=== PATIENT | male | born 1995 | race Caucasian/White ===

== ENCOUNTER → 2019-01-01 | Outpatient (CLI) | payer OTHER ==
[~2019-01-01] MED LIST: CLON1TAB10 PO; LEVO150T10 PO; LEVOFLOXACIN 250MG 50 ML IV ONE; LEVOFLOXACIN 500MG 100 ML IV ONE
[2019-01-01 15:55] VITALS: BP 148/88
--- NOTE | 2019-01-01 15:55 | NUR ---
IV insertion IV access obtained, via clean sterile technique by inserting 22 gauge catheter at after 1 attempt(s). IV secured properly. No trauma to site. Patient tolerated procedure well.
--- NOTE | 2019-01-01 15:55 | NUR ---
Discharge Instructions See e-MAR for any mediations given with this visit. Patient education given on disease process. Patient verbalized understanding. Previous labs reviewed. Patient discharged in stable condition with after care instructions and follow up appointment. MEDICATIONS LEVAQUIN IV
[2019-01-01 17:06] VITALS: BP 134/82
== END | disposition home or self-care (01) ==
LOC: CHF HDHVI 15:51
PROVIDERS: ATTEND Internal Medicine Cardiovascular Disease
DX: L02.91 Cutaneous abscess, unspecified (principal)
CPT/HCPCS: 96365; G0463; J1956

== ENCOUNTER → 2019-03-03 | Outpatient (CLI) | payer OTHER ==
[~2019-03-03] MED LIST changes: -LEVOFLOXACIN 250MG 50 ML IV ONE; -LEVOFLOXACIN 500MG 100 ML IV ONE
== END | disposition home or self-care (01) ==
LOC: Rad HDHVI 12:32
PROVIDERS: ATTEND Internal Medicine
DX: R06.02 Shortness of breath (principal)
CPT/HCPCS: 71046

== ENCOUNTER → 2021-09-14 | Outpatient (CLI) | payer OTHER ==
[~2021-09-14] MED LIST changes: +CLON-853 PO; -CLON1TAB10 PO
== END | disposition home or self-care (01) ==
LOC: LAB 13:40
PROVIDERS: ATTEND Internal Medicine
DX: K92.9 Disease of digestive system, unspecified (principal)
CPT/HCPCS: 85048; 87045; 87177; 87427

== ENCOUNTER → 2021-09-27 | Outpatient (CLI) | payer OTHER ==
[2021-09-27 09:53] LABS: Basophils # (auto) 0.1 10 ^3/uL (0-0.2); Basophils % (auto) 1.3 % (0.0-2.0); Calcium 9.3 mg/dL (8.5-10.1); Eosinophils # (auto) 0.5 10 ^3/uL (0-0.8); Eosinophils % (auto) 8.4 % (0.0-7.0); Hemoglobin 15.2 g/dL (13.5-17.5); Lymphocytes # (auto) 1.9 10 ^3/uL (0.4-5.4); Lymphocytes % (auto) 30.6 % (10.0-50.0); Mean Corpuscular Hemoglobin 27.1 pg (28.0-32.0); Mean Corpuscular Hgb Conc. 32.4 g/dL (32.0-36.0); Mean Corpuscular Volume 83.7 fL (80.0-100.0); Monocytes # (auto) 0.4 10 ^3/uL (0-1.3); Monocytes % (auto) 7.2 % (0.0-12.0); Neutrophils # (auto) 3.2 10 ^3/uL (1.6-8.6); Neutrophils % (auto) 52.5 % (37.0-80.0); Potassium 4.2 mmol/L (3.5-5.1); Red Blood Cells 5.62 10^6/uL (4.5-5.90); Red Cell Distribution Width 13.4 % (11.8-14.3)
[2021-09-27 09:58] LABS: Urine Blood Negative /uL (Negative)
[2021-09-27 09:59] LABS: BUN/Creatinine Ratio 12.1; Bilirubin, Total 0.3 mg/dL (0.2-1.0)
[2021-09-27 10:14] LABS: Free T4 (Free Thyroxine) 1.24 ng/dL (0.89-1.76); Prostate Specific Antigen 0.59 ng/mL (0.0-4.0)
== END | disposition home or self-care (01) ==
LOC: LAB 08:25
PROVIDERS: ATTEND Internal Medicine
DX: D51.3 Other dietary vitamin B12 deficiency anemia (principal); D64.9 Anemia, unspecified; E55.9 Vitamin D deficiency, unspecified; E11.9 Type 2 diabetes mellitus without complications; I10 Essential (primary) hypertension; R00.2 Palpitations; R53.1 Weakness; R30.0 Dysuria; C61 Malignant neoplasm of prostate
CPT/HCPCS: 36415; 80053; 80061; 81003; 82306; 82607; 83036; 84153; 84403; 84439; 84443; 85025

== ENCOUNTER 2024-07-14 05:33 | Inpatient (IN) | payer BC, OTHER ==
[~2024-07-14] VITALS: Ht 185.4 cm; Wt 88.0 kg
--- NOTE | 2024-07-14 07:16 | ED.PDOC ---
History of Present Illness HPI Comments 49 year old male presents to the ED with a chief complaint of perineal abscess onset 5 days. Patient began experiencing swelling perineal region 5 days ago as well as pain. Patient noticed pain worsen yesterday, noticed abscess in the region. Patient spoke with a telehealth doctor as was told to come to ED. In the past 7 years, patient experienced 3 similar episodes. Patient is not able to sit or lay on his back due to pain. PMHx asthma. Denies chest pain, shortness of breath, nausea, vomiting, diarrhea, headache, dizziness, fevers, chills. No other symptoms or modifying factors present at this time. Chief Complaint: Abscess Time Seen by MD: 06:45 Primary Care Provider: UNKNOWN Reviewed Notes: Medications, Allergies Allergies: Coded Allergies: Sulfa Antibiotics (Verified Allergy, Severe, 07/14/24) Home Meds Reported Medications Clonazepam (Clonazepam) 1 Mg Tab, 1 TAB PO QPM PRN for ANXIETY, #30 TAB 09/26/13 Levothyroxine Sodium (Levothyroxine Sodium) 150 Mcg Tab, 150 MCG PO DAILY PRN for thyroid 09/26/13 Information Source: Patient Mode of Arrival: Ambulatory Severity: Moderate Timing: Days Duration: Since onset Prehospital treatment: None Past Medical History PAST MEDICAL HISTORY: Denies Surgical History: Denies all surgeries Family History Family History: Unknown Social History Smoker: Non-Smoker Alcohol: Heavy Drugs: Denies Drug Use Lives In: Home Constitutional: denies: chills, diaphoresis, fatigue, fever, malaise, sweats, weakness, others EENTM: denies: blurred vision, double vision, ear bleeding, ear discharge, ear drainage, ear pain, ear ringing, eye pain, eye redness, hearing loss, mouth pain, mouth swelling, nasal discharge, nose bleeding, nose congestion, nose stevie n, photophobia, tearing, throat pain, throat swelling, voice changes, others Respiratory: denies: cough, hemoptysis, orthopnea, SOB at rest, shortness of breath, SOB with excertion, stridor, wheezing, others Cardiovascular: denies: chest pain, dizzy spells, diaphoresis, Dyspnea on exertion, edema, irregular heart beat, left arm pain, lightheadedness, palpitations, PND, syncope, others Gastrointestinal: denies: abdomen distended, abdominal pain, blood streaked bowels, constipated, diarrhea, dysphagia, difficulty swallowing, hematemesis, melena, nausea, poor appetite, poor fluid intake, rectal bleeding, rectal pain, vomiting, others Genitourinary: reports: others (perineal abscess); denies: burning, dysuria, flank pain, frequency, hematuria, incontinence, penile discharge, penile sore, pain, testicle pain, testicle swelling, urgency Neurological: denies: dizziness, fainting, headache, left sided numbness, left sided weakness, numbness, paresthesia, pre-existing deficit, right sided numbness, right sided weakness, seizure, speech problems, tingling, tremors, weakness, others Musculoskeletal: denies: back pain, gout, joint pain, joint swelling, muscle pain, muscle stiffness, neck pain, others Integumetry: denies: bruises, change in color, change in hair/nails, dryness, laceration, lesions, lumps, rash, wounds, others Allergic/Immunocompromised: denies: Difficulty Healing, Frequent Infections, Hives, Itching, others Hematologic/Lymphatic: denies: anemia, blood clots, easy bleeding, easy bruising, swollen glands, others Endocrine: denies: excessive hunger, excessive sweating, excessive thirst, excessive urination, flushing, intolerance to cold, intolerance to heat, unexplained weight gain, unexplained weight loss, others Psychiatric: denies: anxiety, bipolar disorder, depression, hopeless, panic disorder, schizophrenia, sleepless, suicidal, others All Other Systems: Reviewed and Negative Physical Exam General Appearance: Moderate Distress, Normal HEENT: Normal ENT Inspection, Pharynx Normal, TMs Normal Neck: Full Range of Motion, Non-Tender, Normal, Normal Inspection Respiratory: Chest Non-Tender, Lungs Clear, No Accessory Muscle Use, No Respi ratory Distress, Normal Breath Sounds Cardiovascular: No Edema, No JVD, No Murmur, No Gallop, Normal Peripheral Pulses, Regular Rate/Rhythm Breast Exam: Deferred Gastrointestinal: No Organomegaly, Non Tender, No Pulsatile Mass, Normal Bowel Sounds, Soft Genitalia: Deferred Pelvic: Deferred Rectal: Deferred Extremities: No calf tenderness, Normal capillary refill, Normal inspection, Normal range of motion, Non-tender, No pedal edema Musculoskeletal : Apperance: Normal Neurologic: Alert, guest attendant II-XII nml as Tested, No Motor Deficits, Normal Affect, Normal Mood, No Sensory Deficits Cerebellar Function: Normal Reflexes: Normal Skin: Dry, Normal Color, Warm Peripheral Pulses: 3+ Radial (R), 3+ Radial (L) Lymphatic: No Adenopathy Was a procedure done? Was a procedure done?: No Differential Dx Considerations may include: Abscess Fistula X-Ray, Labs, Meds, VS Vital Signs Date Time Temp Pulse Resp B/P (MAP) Pulse Ox O2 Delivery O2 Flow Rate FiO2 07/14/24 08:10 98.0 72 13 129/69 (89) 97 98.0 07/14/24 07:25 98.3 80 17 129/41 (70) 98 98.3 07/14/24 07:25 80 17 98 Room Air* 0 21 07/14/24 07:24 80 17 129/41 07/14/24 05:53 97.3 87 16 142/93 (109) 98 97.3 Lab Test 07/14/24 09:03 07/14/24 06:58 Range/Units Urine Color Pending Urine Clarity Pending Urine pH Pending Urine Specific [place] Pending Urine Protein Pending Urine Ketones Pending Urine Blood Pending Urine Nitrite Pending Urine Bilirubin Pending Urine Urobilinogen Pending Urine Leukocyte Esterase Pending Urine RBC Pending Urine Microscopic WBC Pending Urine Squamous Epithelial Cells Pending Urine Bacteria Pending Urine Glucose Pending White Blood Count 11.0 H 4.4-10.8 10^3/uL Red Blood Count 5.17 4.5-5.90 10^6/uL Hemoglobin 14.7 13.5-17.5 g/dL Hematocrit 43.5 41.0-53.0 % Mean Corpuscular Volume 84.2 80.0-100.0 fL Mean Corpuscular Hemoglobin 28.5 28.0-32.0 pg Mean Corpuscular Hemoglobin Concent 33.8 32.0-36.0 g/dL Red Cell Distribution Width 13.6 11.8-14.3 % Platelet Count 237 140-450 10^3/uL Mean Platelet Volume 8.7 6.9-10.8 fL Neutrophils (%) (Auto) 74.4 37.0-80.0 % Lymphocytes (%) (Auto) 10.2 10.0-50.0 % Monocytes (%) (Auto) 4.7 0.0-12.0 % Eosinophils (%) (Auto) 10.4 H 0.0-7.0 % Basophils (%) (Auto) 0.3 0.0-2.0 % Neutrophils # (Auto) 8.2 1.6-8.6 10 ^3/uL Lymphocytes # (Auto) 1.1 0.4-5.4 10 ^3/uL Monocytes # (Auto) 0.5 0-1.3 10 ^3/uL Eosinophils # (Auto) 1.1 H 0-0.8 10 ^3/uL Basophils # (Auto) 0 0-0.2 10 ^3/uL Nucleated Red Blood Cells 0.0 % Prothrombin Time 10.9 9.3-11.8 sec Prothrombin Time INR 1.03 0.9-1.15 Activated Partial Thromboplast Time 29.4 24.5-34.5 SEC Sodium Level 139 136-145 mmol/L Potassium Level 4.3 3.5-5.1 mmol/L Chloride Level 106 98-107 mmol/L Carbon Dioxide Level 25 20-31 mmol/L Anion Gap 8 5-15 Blood Urea Nitrogen 15 9-23 mg/dL Creatinine 1.00 0.700-1.30 mg/dL Glomerular Filtration Rate Calc 104 >90 mL/min BUN/Creatinine Ratio 15.0 10.0-20.0 Serum Glucose 102 74-106 mg/dL Calcium Level 10.0 8.7-10.4 mg/dL Current Medications Medications (Trade) Dose Ordered Sig/Vitaly Route Start Time Stop Time Status Last Admin Sodium Chloride 1,000 ml @ 1,000 mls/hr Q1H ONCE IV 07/14/24 06:45 07/14/24 07:44 DC 07/14/24 07:24 Morphine Sulfate 4 mg ONCE ONCE IV 07/14/24 06:45 07/14/24 06:47 DC 07/14/24 07:24 Ondansetron HCl (Zofran) 4 mg ONCE ONCE IV 07/14/24 06:45 07/14/24 06:47 DC 07/14/24 07:23 Ceftriaxone Sodium 50 ml @ 100 mls/hr ONCE ONCE IV 07/14/24 07:00 07/14/24 07:29 DC 07/14/24 07:23 Patient alert. States that he has wound in the rectal area. Unable to sit down because of the pain. Vitals stable. Establish intravenous access. Was given fluids. Was given morphine. Was given Zofran. Was given Rocephin. CT scan of the abdomen does show a cystic structure possible endoscope. Surgical consultation. Reviewed his history. WBC slightly elevated. Hemoglobin within normal limits. Explained to the patient. Continue monitoring. [address] [address] Ph: [phone] DIAGNOSTIC IMAGING Diagnostic Imaging Report : [id number] Signed PATIENT: LIZETT BHARDWAJ ACCT: [id number] UNIT: [id number] : 1995 LOC: ER ROOM / BED: / AGE / SEX: 29 / M ADM STATUS: REG ER SERVICE [id number] ORDERING PHYSICIAN: KERMIT RODRIGUES MD PROCEDURE(s): ABPLIV - CT AB PEL WITH IV CON ONLY REASON: abscess ORDER NUMBER(s): [id number], ACCESSION NUMBER(s): [id number] Exam: CT CT AB PEL WITH IV CON ONLY History: abscess TECHNIQUE: Multiple contiguous axial CT images of the abdomen and pelvis were obtained with intravenous contrast. The images were reformatted to generate coronal and sagittal reconstructions. 100 cc of Omnipaque 350 contrast was injected intravenously. All CT scans at this medical facility are performed using dose modulation techniques as appropriate to a performed exam including the following:Automated exposure control was utilized; adjustment of the MA and/or KV according to patient size; and use of iterative reconstruction technique. Radiation Dose Information: CT Dose: CTDI volume is 11 mGy. Dose-length product is 662 mGy*cm Comparison: None FINDINGS: The liver, gallbladder, pancreas, kidneys, adrenal glands, and spleen appear within normal limits. There is no evidence of abdominal lymphadenopathy. There is no free fluid or free air. There is a nonspecific 3 cm cystic structure with thin enhancing rim at the gastro duodenal junction.. The small and large bowel loops demonstrate normal caliber and distribution. The appendix is not seen in the right lower quadrant abdomen. There are no secondary signs of acute appendicitis. The abdominal aorta and IVC appear within normal limits. The bladder appears within normal limits the degree of distention. Pelvic organ is unremarkable. There is no evidence of a pelvic mass or lymphadenopathy. There is no free fluid collection. Lung bases are clear. There is no acute osseous abnormality. IMPRESSION: 1. Nonspecific 3 cm cystic structure with thin enhancing rim at the gastro duodenal junction. Correlation with endoscopy is recommended. HS:Y ATED BY: RACHID ACKERMAN MD DICTATED DATE/TIME: 07/14/24824 SIGNED BY: RACHID ACKERMAN MD SIGNED DATE/TIME: 07/14/24824 CC: Time of 1ST Reevaluation: 07:15 Reevaluation 1ST: Unchanged Patient Education/Counseling: Diagnosis, Treatment, Prognosis Family Education/Counseling: No Family Present Additional Information The following tests were ordered, and results were reviewed by me: CBC, PTPTT, BMP, CT ABD PEL WITH IV I reviewed and agreed with the following test results read by other providers: CT ABD PEL WITH IV I discussed treatment and results with medical personnel and: patient Comprehensive systems review obtained and negative except for what is stated in the HPI. Departure 1 Departure Time of Disposition: 08:41 Impression: Primary Impression: Abscess Additional Impression: Cystic lesion of abdominal viscera Disposition: ADMITTED INPATIENT Admit to: Med Surg Condition: Guarded Critical Care Note Critical Care Time?: No Stability Stability form required: No Heart Score Heart Score: Heart Score Response (Comments) Value History N/A 0 EKG N/A 0 Age N/A 0 Risk Factors N/A 0 Troponin N/A 0 Total 0 I personally scribed for KERMIT RODRIGUES MD ([email or web address]) on 07/14/24 at 07:16. Electronically submitted by Rosi Bill ([email or web address]). I personally scribed for KERMIT RODRIGUES MD ([email or web address]) on 07/14/24 at 07:43. Electronically submitted by Rosi Bill ([email or web address]). I personally scribed for KERMIT RODRIGUES MD ([email or web address]) on 07/14/24 at 09:11. Electronically submitted by Rosi Bill ([email or web address]). KERMIT RODRIGUES MD July 14, 2024 07:16
[2024-07-14 07:19] LABS: Chloride 106 mmol/L (98-107); Potassium 4.3 mmol/L (3.5-5.1); Sodium 139 mmol/L (136-145)
[2024-07-14 07:20] LABS: Anion Gap 8 (5-15); Carbon Dioxide 25 mmol/L (20-31)
[2024-07-14] MEDS: ONDANSETRON HCL 4 MG/2 ML VIAL IV ONE (07:23)
[2024-07-14] MEDS: cefTRIAXone 1GM/50ML D5W 50 ML IV ONE (07:23)
[2024-07-14] MEDS: SODIUM CHLORIDE 0.9% 1,000 ML IV ONE ×2 (07:24→09:13)
[2024-07-14] MEDS: MORPHINE SULFATE 4 MG/ML SYR/VIAL IV ONE (07:24)
[2024-07-14 07:25] VITALS: PULSE 80; RESP 17; O2SAT 98
[2024-07-14 07:25] LABS: Blood Urea Nitrogen 15 mg/dL (9-23); Glucose 102 mg/dL (74-106)
[2024-07-14 07:29] LABS: Basophils # (auto) 0 10 ^3/uL (0-0.2); Basophils % (auto) 0.3 % (0.0-2.0); Eosinophils # (auto) 1.1 10 ^3/uL (0-0.8); Eosinophils % (auto) 10.4 % (0.0-7.0); Hematocrit 43.5 % (41.0-53.0); Hemoglobin 14.7 g/dL (13.5-17.5); Lymphocytes # (auto) 1.1 10 ^3/uL (0.4-5.4); Lymphocytes % (auto) 10.2 % (10.0-50.0); Mean Corpuscular Hemoglobin 28.5 pg (28.0-32.0); Mean Corpuscular Hgb Conc. 33.8 g/dL (32.0-36.0); Mean Corpuscular Volume 84.2 fL (80.0-100.0); Monocytes # (auto) 0.5 10 ^3/uL (0-1.3); Monocytes % (auto) 4.7 % (0.0-12.0); Neutrophils # (auto) 8.2 10 ^3/uL (1.6-8.6); Neutrophils % (auto) 74.4 % (37.0-80.0); Platelet Count (auto) 237 10^3/uL (140-450); Red Blood Cells 5.17 10^6/uL (4.5-5.90); Red Cell Distribution Width 13.6 % (11.8-14.3)
[2024-07-14 07:35] LABS: INR 1.03 (0.9-1.15); Partial Thromboplastin Time 29.4 SEC (24.5-34.5); Prothrombin Time 10.9 sec (9.3-11.8)
[2024-07-14] MEDS: IOHEXOL 300 MG/ML 100ML BOTTLE IJ ONE (07:51)
--- NOTE | 2024-07-14 08:27 | DVH ---
Exam: CT CT AB PEL WITH IV CON ONLY History: abscess TECHNIQUE: Multiple contiguous axial CT images of the abdomen and pelvis were obtained with intraveno us contrast. The images were reformatted to generate coronal and sagittal reconstructions. 100 cc of Omnipaque 350 contrast was injected intravenously. All CT scans at this medical facility are performed using dose modulation techniques as appropriate t o a performed exam including the following:Automated exposure control was utilized; adjustment of the MA and/or KV according to patient size; and use of iterative reconstruction technique. Radiation Dose Information: CT Dose: CTDI volume is 11 mGy. Dose-length product is 662 mGy*cm Comparison: None FINDINGS: The liver, gallbladder, pancreas, kidneys, adrenal glands, and spleen appear within normal limits. There is no evidence of abdominal lymphadenopathy. There is no free fluid or free air. There is a nonspecific 3 cm cystic structure with thin enhancing rim at the gastro duodenal junction. . The small and large bowel loops demonstrate normal caliber and distribution. The appendix is not s een in the right lower quadrant abdomen. There are no secondary signs of acute appendicitis. The abdominal aorta and IVC appear within normal limits. The bladder appears within normal limits the degree of distention. Pelvic organ is unremarkable. Ther e is no evidence of a pelvic mass or lymphadenopathy. There is no free fluid collection. Lung bases are clear. There is no acute osseous abnormality. IMPRESSION: 1. Nonspecific 3 cm cystic structure with thin enhancing rim at the gastro duodenal junction. Correla tion with endoscopy is recommended. HS:Y
[2024-07-14 09:10] LABS: Urine Bacteria None Seen /hpf (None Seen)
[2024-07-14] MEDS: CLINDAMYCIN 600MG IV 50 ML IV ONE (09:13)
[2024-07-14 09:22] LABS: Urine Blood Negative /uL (Negative); Urine Clarity Clear (Clear); Urine Color Light-Orange (Yellow); Urine Mucus FEW (None Seen); Urine Protein, UAD TRACE (Negative); Urine Specific Gravity > 1.050 (1.001-1.035); Urine Squamous Epithelial Cell None Seen /hpf (<5); Urine Urobilinogen Normal (Negative); Urine WBC < 1 /HPF (0-3); Urine pH 6.5 (5.0-9.0)
[2024-07-14] MEDS ORDERED: HYDROcodone-ACET 5/325MG TAB PO PRN (11:00)
[2024-07-14] MEDS ORDERED: ACETAMINOPHEN 325 MG TAB PO PRN (11:00)
[2024-07-14] MEDS: SODIUM CHLORIDE 0.9% 1,000 ML IV SCH (11:00)
[2024-07-14] MEDS ORDERED: VANCOMYCIN PER PHARMACY 0 MG IV SCH (11:00)
[2024-07-14 11:30] VITALS: PULSE 60; RESP 20; O2SAT 98
--- NOTE | 2024-07-14 12:50 | DVHINCON2 ---
GI Consult Consult Note GI consult note Date of Consultation: 07/14/2024 Chief Complaint: Gastro duodenal cyst Referring Physician: KARINA AYALA H&P: 29-year-old male presented to ER with complains of perineal abscess for five days. Patient also complaining of epigastric abdominal pain, on and off since 2019, pain is worse at night, eight on a 0-10 scale, and has like a burning sensation. Patient also experiences nausea, denies vomiting no hematemesis. Last bowel movement one day ago. No melena or red blood in stool. Patient has history of GERD. SP EGD 2020 at [place], diagnosed with ulcers, also possible intussusception, and was told to follow-up on an outpatient basis. No fevers or chills Past Medical History: Denies Past Surgical History: Denies Social History: NO smoking, heavy occasional drinking ETOH Family History: Unknown Review of Systems: Constitutional: no fever, chill, weight loss HEENT: no eye pain, no hearing loss, no oral lesion, no scleral icterus Heart: no chest pain, no chest pressure Lung: no cough, no dyspnea with exertion Abdomen: see HPI Physical exam: General: NAD, AAOX3 Chest: lung thomas clear to auscultation Heart: RRR, no murmur Abdomen: non-distended, no tenderness to palpation, +BS Labs: Labs Test 07/14/24 09:03 07/14/24 06:58 Range/Units Urine Color Light-orange Yellow Urine Clarity Clear Clear Urine pH 6.5 5.0-9.0 Urine Specific [place] > 1.050 H 1.001-1.035 Urine Protein Trace H Negative Urine Ketones Trace Negative Urine Blood Negative Negative /uL Urine Nitrite Negative Negative Urine Bilirubin Negative Negative Urine Urobilinogen Normal Negative mg/dL Urine Leukocyte Esterase Negative Negative /uL Urine RBC 1 0 - 3 /hpf Urine Microscopic WBC < 1 0-3 /HPF Urine Squamous Epithelial Cells None seen <5 /hpf Urine Bacteria None seen None Seen /hpf Urine Mucus Few None Seen Urine Glucose Normal Normal mg/dL White Blood Count 11.0 H 4.4-10.8 10^3/uL Red Blood Count 5.17 4.5-5.90 10^6/uL Hemoglobin 14.7 13.5-17.5 g/dL Hematocrit 43.5 41.0-53.0 % Mean Corpuscular Volume 84.2 80.0-100.0 fL Mean Corpuscular Hemoglobin 28.5 28.0-32.0 pg Mean Corpuscular Hemoglobin Concent 33.8 32.0-36.0 g/dL Red Cell Distribution Width 13.6 11.8-14.3 % Platelet Count 237 140-450 10^3/uL Mean Platelet Volume 8.7 6.9-10.8 fL Neutrophils (%) (Auto) 74.4 37.0-80.0 % Lymphocytes (%) (Auto) 10.2 10.0-50.0 % Monocytes (%) (Auto) 4.7 0.0-12.0 % Eosinophils (%) (Auto) 10.4 H 0.0-7.0 % Basophils (%) (Auto) 0.3 0.0-2.0 % Neutrophils # (Auto) 8.2 1.6-8.6 10 ^3/uL Lymphocytes # (Auto) 1.1 0.4-5.4 10 ^3/uL Monocytes # (Auto) 0.5 0-1.3 10 ^3/uL Eosinophils # (Auto) 1.1 H 0-0.8 10 ^3/uL Basophils # (Auto) 0 0-0.2 10 ^3/uL Nucleated Red Blood Cells 0.0 % Prothrombin Time 10.9 9.3-11.8 sec Prothrombin Time INR 1.03 0.9-1.15 Activated Partial Thromboplast Time 29.4 24.5-34.5 SEC Sodium Level 139 136-145 mmol/L Potassium Level 4.3 3.5-5.1 mmol/L Chloride Level 106 98-107 mmol/L Carbon Dioxide Level 25 20-31 mmol/L Anion Gap 8 5-15 Blood Urea Nitrogen 15 9-23 mg/dL Creatinine 1.00 0.700-1.30 mg/dL Glomerular Filtration Rate Calc 104 >90 mL/min BUN/Creatinine Ratio 15.0 10.0-20.0 Serum Glucose 102 74-106 mg/dL Calcium Level 10.0 8.7-10.4 mg/dL Imaging: CT abdomen pelvis IMPRESSION: 1. Nonspecific 3 cm cystic structure with thin enhancing rim at the gastro duodenal junction. Correlation with endoscopy is recommended. Assessment: Cystic lesion of gastro duodenal junction Abdominal pain Perineal abscess History of GERD History of PUD in past Plan: Discussed with Dr. Dye Upper GI with Gastrografin to rule out duodenal diverticulum Recheck lab Surgical consult pending We will continue to follow patient Plan discussed with patient, at bedside, and RN Thank you for this consult Date of Service: July 14, 2024 Billing Provider: ANABELA EASTMAN Common Visit Codes: CONSULT ONLY Consultation Codes: [id number] CONSULT <60MIN ANABELA EASTMAN July 14, 2024 12:50
[2024-07-14] MEDS: PANTOPRAZOLE 40 MG/10 ML VIAL INJ IV SCH (13:17)
[2024-07-14] MEDS: MORPHINE SULFATE INJ 2 MG/ml SYRG IV PRN (13:18)
[2024-07-14] MEDS: VANCOMYCIN 1GM/200ML PM 250 ML IV SCH (13:28)
[2024-07-14] MEDS: ONDANSETRON HCL 4 MG/2 ML VIAL IV PRN (13:40)
[2024-07-14] MEDS ORDERED: GASTROGRAFIN 120 ML SOL ONE (14:51)
[2024-07-14] MEDS ORDERED: EZ-GAS II GRANULES (RADIOLOGY USE) PO ONE (14:52)
--- NOTE | 2024-07-14 14:59 | DVHHP2 ---
Admitting Diagnosis: Perineal pain History of Present Illness 49 yo male patient c/o perineal pain secondary to perineal abscess x 5 days that has been worsening. Patient reports having the same issue 3 times in the past. Patient is unable to sit due to pain. While in the emergency department the patient was evaluated by the provider, As per provider: Labs, vital signs, and imagining monitored. Patient will be admitted for further evaluation and treatment. I discussed admission with the patient/family and is in agreement to treatment plan. Allergies: Coded Allergies: Sulfa Antibiotics (Verified Allergy, Severe, 07/14/24) Home Meds Reported Medications Clonazepam (Clonazepam) 1 Mg Tab, 1 TAB PO QPM PRN for ANXIETY, #30 TAB 09/26/13 Levothyroxine Sodium (Levothyroxine Sodium) 150 Mcg Tab, 150 MCG PO DAILY PRN for thyroid 09/26/13 Current Medications Current Medications Medications (Trade) Dose Ordered Sig/Vitaly Route PRN Reason Start Time Stop Time Status Last Admin Sodium Chloride 1,000 ml @ 120 mls/hr Q8H20M IV 07/14/24 11:00 Acetaminophen/ Hydrocodone Bitart ([place] 5/325MG Tab) 1 tab Q4HP PRN PO MODERATE PAIN (4-6 PAIN SCALE) 07/14/24 11:00 Ondansetron HCl (Zofran) 4 mg Q4HP PRN IV NAUSEA / VOMITING 07/14/24 11:00 07/14/24 18:22 Acetaminophen (Tylenol Tablet) 650 mg Q6HP PRN PO PAIN SCALE 1-3 OR TEMP>100.4 07/14/24 11:00 Morphine Sulfate 4 mg Q4HPRN PRN IV SEVERE PAIN (7-10 PAIN SCALE) 07/14/24 11:00 07/14/24 18:27 Vancomycin HCl 0 ml @ 0 mls/hr UD IV 07/14/24 11:00 Pantoprazole Sodium (Protonix) 40 mg DAILY IV 07/14/24 13:00 07/14/24 13:17 Vancomycin HCl 250 ml @ 250 mls/hr Q1H IV 07/14/24 13:15 07/14/24 15:14 DC 07/14/24 14:27 Vancomycin HCl 200 ml @ 200 mls/hr Q8H IV 07/14/24 22:00 Review of Systems Constitutional: denies chills, denies fever, denies malaise Eyes: denies eye pain, denies vision change ENT: denies ear pain, denies headache, denies nasal congestion, denies painful swallowing, denies voice change Cardiovascular: denies chest pain, denies edema, denies orthopnea, denies palpitations, denies paroxysmal nocturnal dyspnea Respiratory: denies cough, denies shortness of breath Gastrointestinal: denies constipation, denies diarrhea, denies nausea, denies vomiting Genitourinary: denies dysuria, denies frequent urination, denies urethral discharge Musculoskeletal: denies back pain, denies joint pain, denies muscle pain Skin: denies bruising, denies itching, denies rash Neurological: denies focal weakness, denies headache, denies sensory changes Psychiatric: denies anxiety, denies depression Endocrine: denies polydipsia, denies polyuria Hematologic/Lymphatic: denies easy bleeding, denies easy bruising, denies enlarged lymph nodes Allergic/Immunologic: denies allergy, denies hives Vital Signs Vital Signs Date Time Temp Pulse Resp B/P (MAP) Pulse Ox O2 Delivery O2 Flow Rate FiO2 07/14/24 21:03 98.5 92 18 110/73 (85) 97 98.5 07/14/24 14:53 Room Air* 0 21 Physical Exam General Appearance: alert, no distress HEENT: EOMI, PERRLA, normal external inspect of ears, no icterus, no nasal drainage Neck: no carotid bruit, no jugular venous distention (JVD), no lymphadenopathy Chest: normal thorax Respiratory: clear to auscultation, normal air movement Cardiovascular: regular rate and rhythm, no diastolic murmur, no jugular venous distention (JVD), no rub, no systolic murmur Abdominal: soft, no hepatomegaly, no mass, no splenomegaly, no tenderness Genitourinary: grossly normal external Musculoskeletal: no joint tenderness, no swelling Extremities: normal pulses, no calf tenderness, no clubbing, no cyanosis, no edema Skin: no bruising, no jaundice, no rash Neurological: alert, No focal deficit Results Labs Test 07/14/24 09:03 07/14/24 06:58 Range/Units Urine Color Light-orange Yellow Urine Clarity Clear Clear Urine pH 6.5 5.0-9.0 Urine Specific [place] > 1.050 H 1.001-1.035 Urine Protein Trace H Negative Urine Ketones Trace Negative Urine Blood Negative Negative /uL Urine Nitrite Negative Negative Urine Bilirubin Negative Negative Urine Urobilinogen Normal Negative mg/dL Urine Leukocyte Esterase Negative Negative /uL Urine RBC 1 0 - 3 /hpf Urine Microscopic WBC < 1 0-3 /HPF Urine Squamous Epithelial Cells None seen <5 /hpf Urine Bacteria None seen None Seen /hpf Urine Mucus Few None Seen Urine Glucose Normal Normal mg/dL White Blood Count 11.0 H 4.4-10.8 10^3/uL Red Blood Count 5.17 4.5-5.90 10^6/uL Hemoglobin 14.7 13.5-17.5 g/dL Hematocrit 43.5 41.0-53.0 % Mean Corpuscular Volume 84.2 80.0-100.0 fL Mean Corpuscular Hemoglobin 28.5 28.0-32.0 pg Mean Corpuscular Hemoglobin Concent 33.8 32.0-36.0 g/dL Red Cell Distribution Width 13.6 11.8-14.3 % Platelet Count 237 140-450 10^3/uL Mean Platelet Volume 8.7 6.9-10.8 fL Neutrophils (%) (Auto) 74.4 37.0-80.0 % Lymphocytes (%) (Auto) 10.2 10.0-50.0 % Monocytes (%) (Auto) 4.7 0.0-12.0 % Eosinophils (%) (Auto) 10.4 H 0.0-7.0 % Basophils (%) (Auto) 0.3 0.0-2.0 % Neutrophils # (Auto) 8.2 1.6-8.6 10 ^3/uL Lymphocytes # (Auto) 1.1 0.4-5.4 10 ^3/uL Monocytes # (Auto) 0.5 0-1.3 10 ^3/uL Eosinophils # (Auto) 1.1 H 0-0.8 10 ^3/uL Basophils # (Auto) 0 0-0.2 10 ^3/uL Nucleated Red Blood Cells 0.0 % Prothrombin Time 10.9 9.3-11.8 sec Prothrombin Time INR 1.03 0.9-1.15 Activated Partial Thromboplast Time 29.4 24.5-34.5 SEC Sodium Level 139 136-145 mmol/L Potassium Level 4.3 3.5-5.1 mmol/L Chloride Level 106 98-107 mmol/L Carbon Dioxide Level 25 20-31 mmol/L Anion Gap 8 5-15 Blood Urea Nitrogen 15 9-23 mg/dL Creatinine 1.00 0.700-1.30 mg/dL Glomerular Filtration Rate Calc 104 >90 mL/min BUN/Creatinine Ratio 15.0 10.0-20.0 Serum Glucose 102 74-106 mg/dL Calcium Level 10.0 8.7-10.4 mg/dL Plan 1. Perineal abscess Monitor, IV abx, surgical consult 2. GERD Monitor, GI consult, IV fluids, PPI 3. Gastroduodenal cyst Monitor, surgical consult, plan for upper GI, Gastrografin to r/o, duodenal diverticulum Plan discussed with: Patient, Other DONY COLLINS NP July 14, 2024 14:58
[2024-07-14 15:00] VITALS: BP 126/71; PULSE 51; RESP 19; TEMP 99; O2SAT 100
[2024-07-14 15:51] VITALS: BP 124/77; PULSE 86; RESP 19; TEMP 97.7; O2SAT 99
--- NOTE | 2024-07-14 16:49 | DVHINCON2 ---
Consultation - Surgical Date Seen: July 14, 2024 Referring Physician Referring Physician er Reason for Consultation Perineal abscess History of Present Illness History of Present Illness 49 year old male presents to the ED with a chief complaint of perineal abscess onset 5 days. Patient began experiencing swelling perineal region 5 days ago as well as pain. Patient noticed pain worsen yesterday, noticed abscess in the region. Patient spoke with a telehealth doctor as was told to come to ED. In the past 7 years, patient experienced 3 similar episodes. Patient is not able to sit or lay on his back due to pain. PMHx asthma. Denies chest pain, shortness of breath, nausea, vomiting, diarrhea, headache, dizziness, fevers, chills. No other symptoms or modifying factors present at this time. Past Medical/Surgical History Past Medical/Surgical History None Family and Social History Family and Social History Nonsmoker nondrinker Allergies and medications Allergies: Coded Allergies: Sulfa Antibiotics (Verified Allergy, Severe, 07/14/24) Home Meds Reported Medications Clonazepam (Clonazepam) 1 Mg Tab, 1 TAB PO QPM PRN for ANXIETY, #30 TAB 09/26/13 Levothyroxine Sodium (Levothyroxine Sodium) 150 Mcg Tab, 150 MCG PO DAILY PRN for thyroid 09/26/13 Review of systems Review of Systems: HEENT:Normal, CVS:Normal, RESPIRATORY:Normal, GI:Abnormal (Perianal pain), :Normal, MSK:Normal, NEURO:Normal Examination Vital signs Vital Signs Date Time Temp Pulse Resp B/P (MAP) Pulse Ox O2 Delivery O2 Flow Rate FiO2 07/14/24 15:51 97.7 86 19 124/77 (93) 99 97.7 07/14/24 14:53 Room Air* 0 21 Medications Current Medications Medications (Trade) Dose Ordered Sig/Vitaly Route PRN Reason Start Time Stop Time Status Last Admin Sodium Chloride 1,000 ml @ 120 mls/hr Q8H20M IV 07/14/24 11:00 Acetaminophen/ Hydrocodone Bitart ([place] 5/325MG Tab) 1 tab Q4HP PRN PO MODERATE PAIN (4-6 PAIN SCALE) 07/14/24 11:00 Ondansetron HCl (Zofran) 4 mg Q4HP PRN IV NAUSEA / VOMITING 07/14/24 11:00 07/14/24 13:40 Acetaminophen (Tylenol Tablet) 650 mg Q6HP PRN PO PAIN SCALE 1-3 OR TEMP>100.4 07/14/24 11:00 Morphine Sulfate 4 mg Q4HPRN PRN IV SEVERE PAIN (7-10 PAIN SCALE) 07/14/24 11:00 07/14/24 13:18 Vancomycin HCl 0 ml @ 0 mls/hr UD IV 07/14/24 11:00 Pantoprazole Sodium (Protonix) 40 mg DAILY IV 07/14/24 13:00 07/14/24 13:17 Vancomycin HCl 250 ml @ 250 mls/hr Q1H IV 07/14/24 13:15 07/14/24 15:14 DC 07/14/24 14:27 Vancomycin HCl 200 ml @ 200 mls/hr Q8H IV 07/14/24 22:00 Laboratory Labs Test 07/14/24 09:03 07/14/24 06:58 Range/Units Urine Color Light-orange Yellow Urine Clarity Clear Clear Urine pH 6.5 5.0-9.0 Urine Specific [place] > 1.050 H 1.001-1.035 Urine Protein Trace H Negative Urine Ketones Trace Negative Urine Blood Negative Negative /uL Urine Nitrite Negative Negative Urine Bilirubin Negative Negative Urine Urobilinogen Normal Negative mg/dL Urine Leukocyte Esterase Negative Negative /uL Urine RBC 1 0 - 3 /hpf Urine Microscopic WBC < 1 0-3 /HPF Urine Squamous Epithelial Cells None seen <5 /hpf Urine Bacteria None seen None Seen /hpf Urine Mucus Few None Seen Urine Glucose Normal Normal mg/dL White Blood Count 11.0 H 4.4-10.8 10^3/uL Red Blood Count 5.17 4.5-5.90 10^6/uL Hemoglobin 14.7 13.5-17.5 g/dL Hematocrit 43.5 41.0-53.0 % Mean Corpuscular Volume 84.2 80.0-100.0 fL Mean Corpuscular Hemoglobin 28.5 28.0-32.0 pg Mean Corpuscular Hemoglobin Concent 33.8 32.0-36.0 g/dL Red Cell Distribution Width 13.6 11.8-14.3 % Platelet Count 237 140-450 10^3/uL Mean Platelet Volume 8.7 6.9-10.8 fL Neutrophils (%) (Auto) 74.4 37.0-80.0 % Lymphocytes (%) (Auto) 10.2 10.0-50.0 % Monocytes (%) (Auto) 4.7 0.0-12.0 % Eosinophils (%) (Auto) 10.4 H 0.0-7.0 % Basophils (%) (Auto) 0.3 0.0-2.0 % Neutrophils # (Auto) 8.2 1.6-8.6 10 ^3/uL Lymphocytes # (Auto) 1.1 0.4-5.4 10 ^3/uL Monocytes # (Auto) 0.5 0-1.3 10 ^3/uL Eosinophils # (Auto) 1.1 H 0-0.8 10 ^3/uL Basophils # (Auto) 0 0-0.2 10 ^3/uL Nucleated Red Blood Cells 0.0 % Prothrombin Time 10.9 9.3-11.8 sec Prothrombin Time INR 1.03 0.9-1.15 Activated Partial Thromboplast Time 29.4 24.5-34.5 SEC Sodium Level 139 136-145 mmol/L Potassium Level 4.3 3.5-5.1 mmol/L Chloride Level 106 98-107 mmol/L Carbon Dioxide Level 25 20-31 mmol/L Anion Gap 8 5-15 Blood Urea Nitrogen 15 9-23 mg/dL Creatinine 1.00 0.700-1.30 mg/dL Glomerular Filtration Rate Calc 104 >90 mL/min BUN/Creatinine Ratio 15.0 10.0-20.0 Serum Glucose 102 74-106 mg/dL Calcium Level 10.0 8.7-10.4 mg/dL Examination: GENERAL:Normal, HEENT:Normal, NECK:Normal, LUNGS:Normal, CVS:Normal, ABDOMEN:Abnormal (Perianal anal tenderness and swelling), MSK :Normal, SKIN:Normal, NEURO:Normal, :Normal Problem List/Assessment/Plan Problems: (1) Abscess Assessment and Plan Perianal abscess Recommend exam under anesthesia and I and D of perianal abscess NPO after midnight Plan discussed with Plan discussed with: Patient Visit Coding Surgery Date of Service if different f: July 14, 2024 Billing Provider: YURI DE LEON Jr., MD Surgery Visit Codes: 59668 - INP CONSULT <80 MIN YURI DE LEON Jr., MD July 14, 2024 16:49
[2024-07-14 17:00] VITALS: BP 116/64; PULSE 81; RESP 18; TEMP 98.6; O2SAT 96
--- NOTE | 2024-07-14 17:31 | DVH ---
XY UGI WITH GASTROGRAFIN, HISTORY: cystic structure gastro-duodenal junction COMPARISON: 07/14/24 CT. PROCEDURE: A manager operations radiograph was obtained prior to the procedure. Gastrograffin and effervescent gra nules were administered orally, and radiographs were obtained under intermittent fluoroscopic observa tion. Total fluoroscopic time was 0.8 minutes. FINDINGS: The esophagus was normal in caliber with no stricture, filling defect or wall irregularity demonstrat ed. Normal esophageal peristalsis was observed. There was prompt passage of contrast through a normal appearing gastroesophageal junction. The stomac h distended normally with a normal mucosal pattern and no evidence for filling defect, mass or wall i rregularity. The duodenal bulb was not well visualized. Contrast was unable to flow into more distal loops of sma ll bowel. The patient vomited during the exam. IMPRESSION: Limited UGI exam due to patient vomiting. However, the fluid filled structure in the distal stomach f rom the prior CT was not visualized on this UGI series and not noted to be filling with contrast adria beasley.
[2024-07-14 21:03] VITALS: BP 110/73; PULSE 92; RESP 18; TEMP 98.5; O2SAT 97
[2024-07-14] MEDS: VANCOMYCIN 1GM/200ML PM 200 ML IV SCH (22:37)
[2024-07-15] VITALS (9 sets, daily range): BP systolic 101–138; BP diastolic 56–88; PULSE 57–95; RESP 14–20; TEMP 97.7–98.6; O2SAT 95–100
[2024-07-15 07:17] LABS: Basophils # (auto) 0.1 10 ^3/uL (0-0.2); Basophils % (auto) 0.6 % (0.0-2.0); Eosinophils # (auto) 0.9 10 ^3/uL (0-0.8); Eosinophils % (auto) 10.1 % (0.0-7.0); Hematocrit 41.1 % (41.0-53.0); Hemoglobin 13.7 g/dL (13.5-17.5); Lymphocytes # (auto) 1.5 10 ^3/uL (0.4-5.4); Lymphocytes % (auto) 16.6 % (10.0-50.0); Mean Corpuscular Hgb Conc. 33.3 g/dL (32.0-36.0); Mean Corpuscular Volume 84.1 fL (80.0-100.0); Monocytes # (auto) 0.5 10 ^3/uL (0-1.3); Monocytes % (auto) 5.9 % (0.0-12.0); Neutrophils % (auto) 66.8 % (37.0-80.0); Nucleated Red Blood Cells % 0.1 %; Platelet Count (auto) 237 10^3/uL (140-450); Red Blood Cells 4.89 10^6/uL (4.5-5.90); Red Cell Distribution Width 13.6 % (11.8-14.3)
[2024-07-15 07:34] LABS: Alanine Aminotransferase 26 U/L (7-40); Albumin 4.1 g/dL (3.2-4.8); Alkaline Phosphatase 64 U/L (46-116); Anion Gap 10 (5-15); Aspartate Aminotransferase 24 U/L (13-40); BUN/Creatinine Ratio 11.6 (10.0-20.0); Bilirubin, Total 0.4 mg/dL (0.2-1.0); Blood Urea Nitrogen 10 mg/dL (9-23); Calcium 9.4 mg/dL (8.7-10.4); Carbon Dioxide 23 mmol/L (20-31); Chloride 107 mmol/L (98-107); Glucose 91 mg/dL (74-106); Potassium 3.9 mmol/L (3.5-5.1); Sodium 140 mmol/L (136-145); Total Protein 6.5 g/dL (5.7-8.2)
--- NOTE | 2024-07-15 08:52 | DVHPN2 ---
Progress Note - Dictate Date Seen: July 15, 2024 Medical Necessity Reason Pt with a Central, PICC or Fol: No vital signs Vital Sign Date Time Temp Pulse Resp B/P (MAP) Pulse Ox O2 Delivery O2 Flow Rate FiO2 07/15/24 05:00 98.6 66 20 101/64 (76) 95 98.6 07/14/24 14:53 Room Air* 0 21 Total Intake and Output 07/14/24 07/14/24 07/15/24 15:00 23:00 07:00 Intake Total 1550 ml 400 ml 0 ml Output Total 400 ml Balance 1550 ml 0 ml 0 ml medications Current Medications Medications Dose Ordered Sig/Vitaly Route Start Time Stop Time Status Last Admin Dose Admin Sodium Chloride 1,000 ml @ 120 mls/hr Q8H20M IV 07/14/24 11:00 Acetaminophen/ Hydrocodone Bitart 1 tab Q4HP PRN PO 07/14/24 11:00 Ondansetron HCl 4 mg Q4HP PRN IV 07/14/24 11:00 07/15/24 00:36 4 MG Acetaminophen 650 mg Q6HP PRN PO 07/14/24 11:00 Morphine Sulfate 4 mg Q4HPRN PRN IV 07/14/24 11:00 07/15/24 00:37 4 MG Vancomycin HCl 0 ml @ 0 mls/hr UD IV 07/14/24 11:00 Pantoprazole Sodium 40 mg DAILY IV 07/14/24 13:00 07/14/24 13:17 40 MG Vancomycin HCl 200 ml @ 200 mls/hr Q8H IV 07/14/24 22:00 07/15/24 06:03 200 MLS/HR objective General Appearance: alert, no distress HEENT: EOMI, PERRLA, normal external inspect of ears, no icterus, no nasal drainage Neck: no carotid bruit, no jugular venous distention (JVD), no lymphadenopathy Chest: normal thorax Respiratory: clear to auscultation, normal air movement Cardiovascular: regular rate and rhythm, no diastolic murmur, no jugular venous distention (JVD), no rub, no systolic murmur Abdominal: soft, no hepatomegaly, no mass, no splenomegaly, no tenderness Genitourinary: grossly normal external Musculoskeletal: no joint tenderness, no swelling Extremities: normal pulses, no calf tenderness, no clubbing, no cyanosis, no edema Skin: no bruising, no jaundice, no rash Neurological: alert, No focal deficit laboratory and microbiology Laboratory Tests 07/15/24 05:59 Test 07/15/24 05:59 Range/Units Serum Glucose 91 74-106 mg/dL Problem List 1. Perineal abscess Monitor, IV abx, surgical consult 2. 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 Objective: Patient was admitted for perineal abscess and irregular imaging for possible gastroduodenal cyst. Patient was seen by general surgery as well as gastroenterology. Patient is status post abscess drainage and is currently on vancomycin for antibiotics. Patient was seen by GI. Upper gastrografin was done and did not show any evidence of a gastroduodenal cyst. Plan: Continue current treatment. Labs appear stable. Monitor daily CBC. Continue pain medication as needed. Plan discussed with: Patient, Other DONY COLLINS NP July 15, 2024 08:52
[2024-07-15] MEDS ORDERED: BUPIVACAINE 0.25% INJ 50ML VIAL ONE (11:00)
[2024-07-15] MEDS ORDERED: KETOROLAC TROMETH 30 MG/ML 1ML VIAL IV ONE (11:45)
[2024-07-15] MEDS ORDERED: MIDAZOLAM HCL 2MG/2ML 2ml VIAL (1mg/ml) ONE (11:48)
[2024-07-15] MEDS ORDERED: fentaNYL CITRATE 100 MCG/2 ML VL ONE (11:48)
[2024-07-15] MEDS ORDERED: ONDANSETRON HCL 4 MG/2 ML VIAL ONE (11:49)
[2024-07-15] MEDS ORDERED: METOCLOPRAMIDE HCL 5MG/ml INJ 2ml VIAL ONE (11:49)
[2024-07-15] MEDS ORDERED: PROPOFOL 10 MG/ML 20 ML IV ONE (11:49)
[2024-07-15] MEDS ORDERED: ceFAZolin 2 GM/D5W50ml 50 ML IV ONE (11:50)
[2024-07-15] MEDS ORDERED: ROCURONIUM 10MG/ML 10ML VIAL IV ONE (12:02)
[2024-07-15] MEDS ORDERED: HYDROmorphone HCL 2 MG/ML VL/or syr ONE (12:19)
[2024-07-15] MEDS ORDERED: SUGAMMADEX 200mg/2ml Vial (100MG/ML) IV ONE (12:21)
--- NOTE | 2024-07-15 12:33 | DVHOP2 ---
Operative Report - 2 Report Details Date: 07/15/24 Preop Diagnosis: Perianal abscess Postop Diagnosis: Next Surgeon: Guillermo Rose MD Anesthesiologist: General endotracheal tube Anesthesia: General Consent: The patient was informed of the risks and benefits of the procedure. These include but are not limited to complications of anesthesia, postoperative infection, incomplete relief of symptoms, recurrence of symptoms, damage to blood vessels, nerves and tendons, deep venous thrombosis, pulmonary embolism and possible need for repeat surgery in the future. Name of Procedure Performed Incision and drainage of perianal abscess Procedure Details Procedure Details: Patient was consented and preopped by myself he was brought back to the operating room placed the operating room table in a prone position after adequate induction of anesthesia antibiotics and time-out the buttocks and anal area was prepped and draped in normal surgical fashion. It was a small opening at the level of just between 6 and 7:00 a.m. proximally 1 cm outside the anal sphincter. This had opened up last night patient stated there was minimal erythema around the area there was no drainage currently the pinhole was opened with the a cruciate incision this allowed for adequate irrigation the cavity its elf was approximately 1-1/2 cm deep. Was irrigated out well with saline. It was then packed with iodoform gauze. A sterile dressing was applied gauze and ABD followed by mesh panties. Patient was awoken and taken to the PACU in a stable condition. Condition Stable Disposition pacu GUILLERMO ROSE Jr., MD July 15, 2024 12:33
[2024-07-15] MEDS: HYDROmorphone HCL 2 MG/ML VL/or syr IV PRN (13:06)
--- NOTE | 2024-07-15 20:10 | DVHPN2 ---
Progress Note - Dictate Date Seen: July 15, 2024 Medical Necessity Reason Pt with a Central, PICC or Fol: No Subjective No new complaints Patient is feeling better Since last night after his abscess ruptured he has not had any further nausea vomiting Upper GI x-ray was not able to confirm the CT scan findings of assist in the gastroduodenal area Patient has had prior endoscopies but it has been a few years vital signs Vital Sign Date Time Temp Pulse Resp B/P (MAP) Pulse Ox O2 Delivery O2 Flow Rate FiO2 07/15/24 16:30 97.9 57 16 108/56 (73) 96 97.9 07/15/24 12:35 Nasal Cannula 3.0 07/15/24 08:20 21 Total Intake and Output 07/14/24 07/14/24 07/15/24 15:00 23:00 07:00 Intake Total 1550 ml 400 ml 0 ml Output Total 400 ml Balance 1550 ml 0 ml 0 ml medications Current Medications Medications Dose Ordered Sig/Vitaly Route Start Time Stop Time Status Last Admin Dose Admin Sodium Chloride 1,000 ml @ 120 mls/hr Q8H20M IV 07/14/24 11:00 Acetaminophen/ Hydrocodone Bitart 1 tab Q4HP PRN PO 07/14/24 11:00 Ondansetron HCl 4 mg Q4HP PRN IV 07/14/24 11:00 07/15/24 18:54 4 MG Acetaminophen 650 mg Q6HP PRN PO 07/14/24 11:00 Morphine Sulfate 4 mg Q4HPRN PRN IV 07/14/24 11:00 07/15/24 00:37 4 MG Vancomycin HCl 0 ml @ 0 mls/hr UD IV 07/14/24 11:00 Pantoprazole Sodium 40 mg DAILY IV 07/14/24 13:00 07/15/24 10:43 40 MG Vancomycin HCl 200 ml @ 200 mls/hr Q8H IV 07/14/24 22:00 07/15/24 14:28 200 MLS/HR objective GENERAL:Normal, HEENT:Normal, NECK:Normal, LUNGS:Normal, CVS:Normal, ABDOMEN:Abnormal (Perianal anal tenderness and swelling), MSK:Normal, SKIN:Normal, NEURO:Normal, :Normal laboratory and microbiology Laboratory Tests 07/15/24 05:59 Test 07/15/24 05:59 Range/Units Serum Glucose 91 74-106 mg/dL Problems(with codes): (1) Nausea and vomiting (2) Cystic lesion of abdominal viscera (3) Abscess Prognosis Plan Continue supportive care Protonix 40 mg IV daily Zofran as needed for nausea and vomiting I will tentatively plan an endoscopy for this patient on 07/15/2024, patient is requesting mac sedation Plan discussed with: Patient, Spouse, Other (Nurse) SHELLY IRELAND MD July 15, 2024 20:10
[2024-07-16] VITALS (9 sets, daily range): BP systolic 101–132; BP diastolic 51–79; PULSE 61–88; RESP 16–18; TEMP 97.6–98.6; O2SAT 95–98
[2024-07-16] MEDS: ONDANSETRON HCL 4 MG/2 ML VIAL IV ONE (05:45)
[2024-07-16 06:49] LABS: Hematocrit 41.9 % (41.0-53.0); Hemoglobin 14.1 g/dL (13.5-17.5); Mean Corpuscular Hemoglobin 28.2 pg (28.0-32.0); Mean Corpuscular Hgb Conc. 33.6 g/dL (32.0-36.0); Platelet Count (auto) 258 10^3/uL (140-450); Red Blood Cells 4.99 10^6/uL (4.5-5.90); Red Cell Distribution Width 13.7 % (11.8-14.3); White Blood Cell 8.9 10^3/uL (4.4-10.8)
[2024-07-16 07:04] LABS: Band Neutrophils % (manual) 0; Basophils % (manual) 0 (0.0-2.0); Blast Cells 0; Metamyelocytes % 0; Myelocytes % 0; Promyelocytes % 0; Reactive Lymphocytes 0
[2024-07-16 07:49] LABS: Eosinophils % (manual) 11 (0-7); Lymphocytes % (manual) 22 (10.0-50.0); Monocytes % (manual) 3 (0-12)
[2024-07-16 07:50] LABS: Platelet Estimate Adequate
--- NOTE | 2024-07-16 09:40 | DVHPN2 ---
Progress Note - Dictate Date Seen: July 16, 2024 Medical Necessity Reason Pt with a Central, PICC or Fol: No vital signs Vital Sign Date Time Temp Pulse Resp B/P (MAP) Pulse Ox O2 Delivery O2 Flow Rate FiO2 07/16/24 09:00 98.4 61 18 116/62 (80) 97 98.4 07/16/24 08:10 Room Air* 0 21 Total Intake and Output 07/15/24 07/15/24 07/16/24 15:00 23:00 07:00 Intake Total 225 ml 760 ml 200 ml Balance 225 ml 760 ml 200 ml medications Current Medications Medications Dose Ordered Sig/Vitaly Route Start Time Stop Time Status Last Admin Dose Admin Sodium Chloride 1,000 ml @ 120 mls/hr Q8H20M IV 07/14/24 11:00 07/16/24 09:30 120 MLS/HR Acetaminophen/ Hydrocodone Bitart 1 tab Q4HP PRN PO 07/14/24 11:00 Ondansetron HCl 4 mg Q4HP PRN IV 07/14/24 11:00 07/15/24 18:54 4 MG Acetaminophen 650 mg Q6HP PRN PO 07/14/24 11:00 Morphine Sulfate 4 mg Q4HPRN PRN IV 07/14/24 11:00 07/15/24 00:37 4 MG Vancomycin HCl 0 ml @ 0 mls/hr UD IV 07/14/24 11:00 Pantoprazole Sodium 40 mg DAILY IV 07/14/24 13:00 07/16/24 09:26 40 MG Vancomycin HCl 200 ml @ 200 mls/hr Q8H IV 07/14/24 22:00 07/16/24 05:44 200 MLS/HR objective General Appearance: alert, no distress HEENT: EOMI, PERRLA, normal external inspect of ears, no icterus, no nasal drainage Neck: no carotid bruit, no jugular venous distention (JVD), no lymphadenopathy Chest: normal thorax Respiratory: clear to auscultation, normal air movement Cardiovascular: regular rate and rhythm, no diastolic murmur, no jugular venous distention (JVD), no rub, no systolic murmur Abdominal: soft, no hepatomegaly, no mass, no splenomegaly, no tenderness Genitourinary: grossly normal external Musculoskeletal: no joint tenderness, no swelling Extremities: normal pulses, no calf tenderness, no clubbing, no cyanosis, no edema Skin: no bruising, no jaundice, no rash Neurological: alert, No focal deficit laboratory and microbiology Laboratory Tests 07/16/24 05:38 07/15/24 05:59 Test 07/15/24 05:59 Range/Units Serum Glucose 91 74-106 mg/dL Problem List 1. Perianal abscess Monitor, IV abx, surgical evaluation 2. 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 Objective: Patient was admitted for nausea and vomiting related to perianal abscess. Patient was seen by surgery, he has status post drainage with iodoform packing. I did discuss plan of care with surgeon who stated packing will eventually fall out of place on its own. Patient also was noted to found a gastroduodenal cystic lesion. Patient was seen by gastroenterology, they are planning for EGD today. Repeat BMP is pending. Plan: Continue antibiotics. Repeat labs pending. Plan for EGD and discharge planning if cleared by surgery. Plan discussed with: Patient, Other DONY COLLINS INDUSTRIAL ENGINEER July 16, 2024 09:40
[2024-07-16 10:10] LABS: Calcium 9.5 mg/dL (8.7-10.4); Chloride 105 mmol/L (98-107); Potassium 4.1 mmol/L (3.5-5.1); Sodium 139 mmol/L (136-145)
[2024-07-16 10:16] LABS: BUN/Creatinine Ratio 12.4 (10.0-20.0); Blood Urea Nitrogen 12 mg/dL (9-23); Glucose 86 mg/dL (74-106)
[2024-07-16 10:19] LABS: Anion Gap 11 (5-15); Carbon Dioxide 23 mmol/L (20-31)
[2024-07-16] MEDS ORDERED: MIDAZOLAM HCL 2MG/2ML 2ml VIAL (1mg/ml) ONE (14:01)
[2024-07-16] MEDS ORDERED: PROPOFOL 10 MG/ML 20 ML IV ONE (14:12)
--- NOTE | 2024-07-16 14:17 | DVHOP2 ---
Operative Report DATE OF OPERATION: 07/16/24 PROCEDURE: Upper Endoscopy with biopsy. PREOPERATIVE INDICATION: The patient is a 29 -year-old male undergoing endoscopy for abnormal finding add gastroduodenal junction GI tract imaging POSTOPERATIVE DIAGNOSES: 1. Patient had a large deep 2.5 cm pre-pyloric antral gastric ulcer with some overlying eschar but no visible vessel or active bleeding 2. Moderate gastroduodenitis with multiple other superficial gastric erosions and tiny ulcers and some flecks of old blood 3. 2-3 cm sliding-type hiatal hernia with grade a erosive esophagitis 4. Otherwise normal examination up to the 2nd and 3rd part of the duodenal with no active bleeding and good bile drainage PROCEDURE PERFORMED BY: Shelly Dye GI NURSE: Brianne SCOPE: Olympus videoendoscope. ASA CLASS: 3. PREOPERATIVE MEDICATIONS: Mac sedation, [place] PROCEDURE IN DETAIL: After obtaining an informed consent, the patient was placed on left lateral decubitus position. The patient was then sedated with the above medications. A bite block was placed between his teeth. The endoscope was then passed through the oropharynx, into the esophagus, and through the stomach and pylorus up to the second and third part of the duodenum. The endoscope was then withdrawn. The 2nd and 3rd part of the duodenum were normal and the duodenal bulb showed mild duodenitis The pre-pyloric area antrum and body showed moderate gastritis with multiple pre-pyloric gastric erosions and tiny ulcers There was a larger 2.5 cm deep pre-pyloric antral gastric ulcer extending from the 04/06 4 o'clock position with overlying eschar but no visible vessel or active bleeding Duodenal and gastric biopsies were obtained. On retroflexion the fundus cardia and angularis were normal. The endoscope was then withdrawn into distal esophagus Patient had a 2-3 cm sliding-type hiatal hernia with irregular squamocolumnar junction grade a erosive esophagitis and GE junction biopsies were obtained. The remaining distal and proximal esophagus and oropharynx were unremarkable. The patient tolerated the procedure well without difficulty. COMPLICATIONS : None SPECIMENS: Duodenal biopsies Gastric biopsies GE junction biopsies DISPOSITION: Transfer back to the floor Stable PLAN: 1. Await for biopsy result 2. Will place pt on Protonix 40 mg bid 3. Carafate suspension 1 g p.o. 4 times a day 4. Full liquid diet advance to soft mechanical 5. DC aspirin NSAIDs smoking alcohol 6. [facility] follow up with [facility]6 weeks to review results and discuss further management SHELLY DYE MD July 16, 2024 14:17
[2024-07-16] MEDS: SUCRALFATE 1 GM/10 ML ORAL SUSP PO SCH (16:45)
[2024-07-16] MEDS: PANTOPRAZOLE 40 MG/10 ML VIAL INJ IV SCH (21:55)
[2024-07-17 05:00] VITALS: BP 131/78; PULSE 74; RESP 18; TEMP 97.9; O2SAT 97
[2024-07-17 07:21] LABS: Hematocrit 39.6 % (41.0-53.0); Hemoglobin 13.3 g/dL (13.5-17.5); Mean Corpuscular Hemoglobin 28.4 pg (28.0-32.0); Mean Corpuscular Hgb Conc. 33.7 g/dL (32.0-36.0); Mean Corpuscular Volume 84.1 fL (80.0-100.0); Platelet Count (auto) 262 10^3/uL (140-450); Red Blood Cells 4.71 10^6/uL (4.5-5.90); Red Cell Distribution Width 13.2 % (11.8-14.3); White Blood Cell 7.9 10^3/uL (4.4-10.8)
[2024-07-17 07:35] LABS: Band Neutrophils % (manual) 0; Basophils % (manual) 0 (0.0-2.0); Blast Cells 0; Metamyelocytes % 0; Myelocytes % 0; Promyelocytes % 0; Reactive Lymphocytes 0
[2024-07-17 08:00] VITALS: RESP 18; O2SAT 98
[2024-07-17 08:19] VITALS: BP 129/84; PULSE 82; RESP 18; TEMP 97.5; O2SAT 99
[2024-07-17 08:32] LABS: Eosinophils % (manual) 24 (0-7); Lymphocytes % (manual) 17 (10.0-50.0); Monocytes % (manual) 6 (0-12); Platelet Estimate Adequate
[2024-07-17] MEDS ORDERED: SUCR1TAB31 OR (11:12)
[2024-07-17] MEDS ORDERED: PANT40TA2 PO (11:12)
[2024-07-17] MEDS ORDERED: AUG875T PO (11:12)
[2024-07-17] MEDS ORDERED: HYDR-4798 PO (11:13)
--- NOTE | 2024-07-17 11:19 | DVHDS2 ---
Discharge Summary Date of Admission July 14, 2024 at 10:58 Date of Discharge: July 17, 2024 Labs/Diagnostic Data: Laboratory Results Test 07/17/24 06:04 07/16/24 21:06 07/16/24 05:38 07/15/24 05:59 White Blood Count 7.9 10^3/uL (4.4-10.8) Red Blood Count 4.71 10^6/uL (4.5-5.90) Hemoglobin 13.3 g/dL (13.5-17.5) Hematocrit 39.6 % (41.0-53.0) Mean Corpuscular Volume 84.1 fL (80.0-100.0) Mean Corpuscular Hemoglobin 28.4 pg (28.0-32.0) Mean Corpuscular Hemoglobin Concent 33.7 g/dL (32.0-36.0) Red Cell Distribution Width 13.2 % (11.8-14.3) Platelet Count 262 10^3/uL (140-450) Mean Platelet Volume 8.7 fL (6.9-10.8) Neutrophils (%) (Auto) % (37.0-80.0) Lymphocytes (%) (Auto) % (10.0-50.0) Monocytes (%) (Auto) % (0.0-12.0) Eosinophils (%) (Auto) % (0.0-7.0) Basophils (%) (Auto) % (0.0-2.0) Neutrophils # (Auto) 10 ^3/uL (1.6-8.6) Lymphocytes # (Auto) 10 ^3/uL (0.4-5.4) Monocytes # (Auto) 10 ^3/uL (0-1.3) Differential Total Cells Counted 100.0 (100) Neutrophils % (Manual) 53 (37.0-80.0) Band Neutrophils % (Manual) 0 Lymphocytes % (Manual) 17 (10.0-50.0) Monocytes % (Manual) 6 (0-12) Eosinophils % (Manual) 24 (0-7) Basophils % (Manual) 0 (0.0-2.0) Metamyelocytes % (manual) 0 Myelocytes % (Manual) 0 Promyelocytes % (Manual) 0 Blast Cells % (Manual) 0 Reactive Lymphocytes 0 Platelet Estimate Adequate Creatinine 0.97 mg/dL (0.700-1.30) Glomerular Filtration Rate Calc 108 mL/min (>90) Vancomycin Level Trough 14.5 ug/mL (5-10) Sodium Level 139 mmol/L (136-145) Potassium Level 4.1 mmol/L (3.5-5.1) Chloride Level 105 mmol/L (98-107) Carbon Dioxide Level 23 mmol/L (20-31) Anion Gap 11 (5-15) Blood Urea Nitrogen 12 mg/dL (9-23) BUN/Creatinine Ratio 12.4 (10.0-20.0) Serum Glucose 86 mg/dL (74-106) Calcium Level 9.5 mg/dL (8.7-10.4) Eosinophils # (Auto) 0.9 10 ^3/uL (0-0.8) Basophils # (Auto) 0.1 10 ^3/uL (0-0.2) Nucleated Red Blood Cells 0.1 % Total Bilirubin 0.4 mg/dL (0.2-1.0) Aspartate Amino Transferase (AST) 24 U/L (13-40) Alanine Aminotransferase (ALT) 26 U/L (7-40) Alkaline Phosphatase 64 U/L (46-116) Total Protein 6.5 g/dL (5.7-8.2) Albumin 4.1 g/dL (3.2-4.8) Test 07/14/24 09:03 07/14/24 06:58 Urine Color Light-orange (Yellow) Urine Clarity Clear (Clear) Urine pH 6.5 (5.0-9.0) Urine Specific [place] > 1.050 (1.001-1.035) Urine Protein Trace (Negative) Urine Ketones Trace (Negative) Urine Blood Negative /uL (Negative) Urine Nitrite Negative (Negative) Urine Bilirubin Negative (Negative) Urine Urobilinogen Normal mg/dL (Negative) Urine Leukocyte Esterase Negative /uL (Negative) Urine RBC 1 /hpf (0 - 3) Urine Microscopic WBC < 1 /HPF (0-3) Urine Squamous Epithelial Cells None seen /hpf (<5) Urine Bacteria None seen /hpf (None Seen) Urine Mucus Few (None Seen) Urine Glucose Normal mg/dL (Normal) Prothrombin Time 10.9 sec (9.3-11.8) Prothrombin Time INR 1.03 (0.9-1.15) Activated Partial Thromboplast Time 29.4 SEC (24.5-34.5) Other Laboratory Tests 07/17/24 06:04 07/16/24 05:38 Brief Hx & Hospital Course: 49 yo male patient c/o perineal pain secondary to perineal abscess x 5 days that has been worsening. Patient reports having the same issue 3 times in the past. Patient is unable to sit due to pain. Patient admitted on 07/14/2024 for perianal pain and was found to have a perianal abscess. Patient was seen by general surgery. Patient also had abnormal imaging noted on CT with a possible gastroduodenal cyst. Patient was also seen by gastroenterology. Patient is status post irrigation and debridement with packing by general surgery on 07/15/2024. Patient is status post EGD on 07/16/2024. Patient had several polyps removed. He was found to have gastroduodenitis and a moderate hiatal hernia. Patient was prescribed Protonix twice daily and Carafate four times a day. Patient also given Augmentin for abscess and was instructed that the packing would fall out on its own and to keep the site clean and dry. Patient will follow-up with their PCP in 1 week. There were no complaints or new complaints upon discharge, all questions and concerns were answered. Patient was advised to return to the ER or call 911 if any headaches, dizziness, shortness of breath, chest pain, bleeding, fevers, or worsening of medical condition. Patient/Family was counseled about treatment plan, medications, possible side effects, patientverbalized understanding. All questions were answered to the best of my ability. The patient symptoms improved and they are okay to be DC. Condition at Discharge: Stable Final Diagnosis/Problems List s/p I and D of perianal abscess s/p EGD- peptic ulcer disease and gastritis, biopsies taken Hiatal hernia GERD Gastroduodenal cyst Discharge Disposition: Home Discharge Instruct/Medications Diet: Cardiac 2g Na,low cholest Activity: No Restrictions, As Tolerated Follow Up/Referral: f/u Dr. Dye in 4-6 weeks Medications: Gary sent for pain as needed Discharge Statement: "Patient was advised to return to the ER or call 911 if any headaches, dizziness, shortness of breath, chest pain, abdominal pain, bleeding, fevers, or worsening of medical condition. Patient was counseled about treatment plan, medications, possible side effects, patientverbalized understanding. All questions were answered to the best of my ability. This discharge took greater then 30 minutes in planning, reviewing documentation, counseling the patient, and discussing with other team members." ASSESSMENT ASSESSMENT Assessment s/p I and D of perianal abscess s/p EGD- peptic ulcer disease and gastritis, biopsies taken Hiatal hernia DONY COLLINS NP July 17, 2024 11:19
[2024-07-17 12:14] VITALS: BP 133/81; PULSE 61; RESP 18; TEMP 98.3; O2SAT 97
--- NOTE | 2024-07-17 13:36 | DVHPN2 ---
Progress Note - Dictate Date Seen: July 17, 2024 Medical Necessity Reason Pt with a Central, PICC or Fol: No Subjective No new complaints Patient is feeling better EGD showed prepyloric ulcer and gastroduodenitis vital signs Vital Sign Date Time Temp Pulse Resp B/P (MAP) Pulse Ox O2 Delivery O2 Flow Rate FiO2 07/17/24 12:14 98.3 61 18 133/81 (98) 97 98.3 07/17/24 08:00 Room Air* 0 21 Total Intake and Output 07/16/24 07/16/24 07/17/24 15:00 23:00 07:00 Intake Total 1025 ml 1400 ml 2500 ml Output Total 1300 ml Balance 1025 ml 1400 ml 1200 ml medications Current Medications Medications Dose Ordered Sig/Vitaly Route Start Time Stop Time Status Last Admin Dose Admin Sodium Chloride 1,000 ml @ 120 mls/hr Q8H20M IV 07/14/24 11:00 07/16/24 23:50 120 MLS/HR Acetaminophen/ Hydrocodone Bitart 1 tab Q4HP PRN PO 07/14/24 11:00 Ondansetron HCl 4 mg Q4HP PRN IV 07/14/24 11:00 07/16/24 20:42 4 MG Acetaminophen 650 mg Q6HP PRN PO 07/14/24 11:00 Morphine Sulfate 4 mg Q4HPRN PRN IV 07/14/24 11:00 07/16/24 20:43 4 MG Vancomycin HCl 0 ml @ 0 mls/hr UD IV 07/14/24 11:00 Vancomycin HCl 200 ml @ 200 mls/hr Q8H IV 07/14/24 22:00 07/17/24 05:32 200 MLS/HR Pantoprazole Sodium 40 mg BID IV 07/16/24 22:00 07/17/24 09:45 40 MG Sucralfate 1 gm QID@0600,1130,1700,2200 PO 07/16/24 17:00 07/17/24 11:26 1 GM objective GENERAL:Normal, HEENT:Normal, NECK:Normal, LUNGS:Normal, CVS:Normal, ABDOMEN:Abnormal (Perianal anal tenderness and swelling), MSK:Normal, SKIN:Normal, NEURO:Normal, :Normal laboratory and microbiology Laboratory Tests 07/17/24 06:04 07/16/24 05:38 Test 07/16/24 05:38 Range/Units Serum Glucose 86 74-106 mg/dL Problems(with codes): (1) Gastroduodenitis (2) Gastric ulcer (3) Nausea and vomiting (4) Abscess Prognosis PLAN Advance diet as tolerated PPI and Carafate D/C NSAIDS F/u in 2-4 weeks Plan discussed with: Patient, Other (Nurse Yamel) SHELLY IRELAND MD July 17, 2024 13:36
[2024-07-17 14:39] VITALS: BP 133/81; PULSE 61; RESP 18; TEMP 36.8; O2SAT 97
== END 2024-07-17 15:35 | disposition home or self-care (01) | DRG 580 ==
LOC: ER 05:33 → OVERFLOW 10:58 → CENTRAL 23:54
PROVIDERS: ADMIT Nurse Practitioner; ATTEND Nurse Practitioner
PROC: 0D9Q0ZZ Drainage of Anus, Open Approach (ICD-10-PCS; principal; 2024-07-15 11:58)
PROC: 0DB68ZX Excision of Stomach, Via Natural or Artificial Opening Endoscopic, Diagnostic (ICD-10-PCS; 2024-07-16)
PROC: 0DB98ZX Excision of Duodenum, Via Natural or Artificial Opening Endoscopic, Diagnostic (ICD-10-PCS; 2024-07-16)
DX: L02.215 Cutaneous abscess of perineum (principal); K61.0 Anal abscess; K29.90 Gastroduodenitis, unspecified, without bleeding; K29.80 Duodenitis without bleeding; K25.9 Gastric ulcer, unspecified as acute or chronic, without hemorrhage or perforation; J45.909 Unspecified asthma, uncomplicated; K44.9 Diaphragmatic hernia without obstruction or gangrene; K21.00 Gastro-esophageal reflux disease with esophagitis, without bleeding; K29.70 Gastritis, unspecified, without bleeding; Z87.11 Personal history of peptic ulcer disease
CPT/HCPCS: 36415; 43239; 74177; 74246; 80048; 80053; 80202; 81001; 82565; 85007; 85025; 85027; 85610; 85730; 86850; 86900; 86901; 96365; 96375; G0378; J2250; J2405; J2470; J2704; J3490

== ENCOUNTER 2024-10-16 12:44 | Emergency (ER) | payer BC ==
[~2024-10-16] VITALS: Ht 185.4 cm; Wt 84.8 kg
[~2024-10-16 12:44] MED LIST changes: +AUG875T PO; +HYDR-4798 PO; +PANT40TA2 PO; +SUCR1TAB31 OR
--- NOTE | 2024-10-16 13:37 | ED.PDOC ---
Eye-HPI HPI Comments A 29 YEAR OLD MALE PRESENTS TO THE ED WITH COMPLAINT OF LEFT EAR PAIN AND SORE THROAT. PATIENT STATES HE HAS BEEN EXPERIENCING LEFT EAR PAIN AND A SORE THROAT FOR THE PAST 2 DAYS. PATIENT REPORTS HE WENT TO AN URGENT CARE WHERE HE WAS TOLD HE HAD SWOLLEN LYMPH NODES, BUT WAS OTHERWISE NORMAL. PATIENT NOTES HE HAS A RASH ON THE LEFT SIDE OF HIS BODY AND WAS TOLD HE MIGHT HAVE SHINGLES, BUT IS NOT SURE. PATIENT DENIES FEVER, CHILLS, SHORTNESS OF BREATH, CHEST PAIN, ABDOMINAL PAIN, NAUSEA, VOMITING, HEADACHE, OR OTHER COMPLAINTS. NO OTHER SYMPTOMS OR MODIFYING FACTORS AT THIS TIME. PATIENT IS ALERT, ORIENTED X 4, AND HAS STEADY GAIT. Chief Complaint: Earache Time Seen by MD: 12:52 Primary Care Provider: UNKNOWN Reviewed Notes: Nurses Notes, Medications, Allergies Allergies: Coded Allergies: Sulfa Antibiotics (Verified Allergy, Severe, 07/14/24) Home Meds Active Scripts Triamcinolone Acetonide (Triamcinolone Acetonide) 0.025 % Cre, 1 APPLIC TOP BID, #30 GRAMS Prov:CHRISTIAN ANDRES 10/16/24 Tramadol HCl (Tramadol HCl) 50 Mg Tab, 50 MG PO BID, #20 TAB Prov:CHRISTIAN ANDRES 10/16/24 Ciprofloxacin-Hydrocortisone (Cipro Hc 0.2-1 %) 1 Shantell Shantell, 4 DROP OT BID, #7.5 M L Prov:CHRISTIAN ANDRES 10/16/24 Hydrocodone-Acetaminophen (Hydrocodone Bitartrate/AC 10-325 mg) 1 Tab Tab, 1 TAB PO Q8HP PRN for 5 Days, #15 TAB Prov:DONY COLLINS NP 07/17/24 Amoxicillin & Pot Clavulanate (AUGMENTIN TABLET) 875 Mg Tb, 875 MG PO BID for 10 Days, #20 TAB Prov:DONY COLLINS NP 07/17/24 Sucralfate (CARAFATE) 1 Gm Tab, 1 GM OR QIDACHS for 30 Days, #120 TAB 6 Refills Prov:DONY COLLINS NP 07/17/24 Pantoprazole Sodium Sesquihydr (Protonix) 40 Mg Tab, 40 MG PO BID for 30 Days, #60 TAB 6 Refills Prov:DONY COLLINS NP 07/17/24 Reported Medications Clonazepam (Clonazepam) 1 Mg Tab, 1 TAB PO QPM PRN for ANXIETY, #30 TAB 09/26/13 Levothyroxine Sodium (Levothyroxine Sodium) 150 Mcg Tab, 150 MCG PO DAILY PRN for thyroid 09/26/13 Information Source: Patient Mode of Arrival: Ambulatory Timing: Days Duration: Since onset, Days Prehospital treatment: None Quality: Pain, Red Lids: Normal Conjunctiva: Normal Cornea: Normal Pupils: Normal EOM: Normal Fundus: Normal Slit lamp exam: Normal Anterior chamber: Normal Mouth Location: Pharynx Mouth: Normal ENT Ear Exam: Normal, Red, Bulging, Dull, Normal Nose: Normal Sinuses: Normal Oropharynx: Red Onset: Spontaneous Throat Exposed to: None History of: None Last Tetanus: Unknown Modifying factors: Nothing Associated signs and symptoms: Sore Throat, Ear Pain Past Medical History PAST MEDICAL HISTORY: Denies Surgical History: Denies all surgeries Family History Family History: Reviewed,noncontributory to illness Social History Smoker: Non-Smoker Alcohol: Heavy Drugs: Denies Drug Use Lives In: Home Constitutional: denies: chills, diaphoresis, fatigue, fever, malaise, sweats, weakness, others EENTM: reports: ear pain, ear ringing, throat pain, throat swelling; denies: blurred vision, double vision, ear bleeding, ear discharge, ear drainage, eye pain, eye redness, hearing loss, mouth pain, mouth swelling, nasal discharge, nose bleeding, nose congestion, nose pain, photophobia, tearing, voice changes, others Respiratory: denies: cough, hemoptysis, orthopnea, SOB at rest, shortness of breath, SOB with excertion, stridor, wheezing, others Cardiovascular: denies: chest pain, dizzy spells, diaphoresis, Dyspnea on exertion, edema, irregular heart beat, left arm pain, lightheadedness, palpitations, PND, syncope, others Gastrointestinal: denies: abdomen distended, abdominal pain, blood streaked bowels, constipated, diarrhea, dysphagia, difficulty swallowing, hematemesis, melena, nausea, poor appetite, poor fluid intake, rectal bleeding, rectal pain, vomiting, others Genitourinary: denies: burning, dysuria, flank pain, frequency, hematuria, in continence, penile discharge, penile sore, pain, testicle pain, testicle swelling, urgency, others Neurological: denies: dizziness, fainting, headache, left sided numbness, left sided weakness, numbness, paresthesia, pre-existing deficit, right sided numbness, right sided weakness, seizure, speech problems, tingling, tremors, weakness, others Musculoskeletal: denies: back pain, gout, joint pain, joint swelling, muscle pain, muscle stiffness, neck pain, others Integumetry: reports: rash; denies: bruises, change in color, change in hair/nails, dryness, laceration, lesions, lumps, wounds, others Allergic/Immunocompromised: denies: Difficulty Healing, Frequent Infections, Hives, Itching, others Hematologic/Lymphatic: denies: anemia, blood clots, easy bleeding, easy bruising, swollen glands, others Endocrine: denies: excessive hunger, excessive sweating, excessive thirst, excessive urination, flushing, intolerance to cold, intolerance to heat, unexplained weight gain, unexplained weight loss, others Psychiatric: denies: anxiety, bipolar disorder, depression, hopeless, panic disorder, schizophrenia, sleepless, suicidal, others All Other Systems: Reviewed and Negative Physical Exam General Appearance: No Apparent Distress, Normal HEENT: PERRL/EOMI, Pharyngeal Erythema (ERYTHEMA AND VESICLE PHARYNX, NO EXUDATES. ), TM Abnormal (L) (ERYTHEMA AND DULL WITH EFFUSION POF LEFT M, NO BLEEDING AND BLOOD CLOTS. ) Neck: Full Range of Motion, Non-Tender, Normal, Normal Inspection Respiratory: Chest Non-Tender, Lungs Clear, No Accessory Muscle Use, No Respiratory Distress, Normal Breath Sounds Cardiovascular: No Edema, No JVD, No Murmur, No Gallop, Normal Peripheral Pulses, Regular Rate/Rhythm Breast Exam: Deferred Gastrointestinal: No Organomegaly, Non Tender, No Pulsatile Mass, Normal Bowel Sounds, Soft Genitalia: Deferred Pelvic: Deferred Rectal: Deferred Extremities: No calf tenderness, Normal capillary refill, Normal inspection, Normal range of motion, Non-tender, No pedal edema Musculoskeletal : Apperance: Normal Neurologic: Alert, floatman II-XII nml as Tested, No Motor Deficits, Normal Affect, Normal Mood, No Sensory Deficits Cerebellar Function: Normal Reflexes: Normal Skin: Dry, Normal Color, Rash (PAPULAR AND MACULAR SKIN RASH ON LEFT SIDE FOREHEAD, FACE AND CHIN REGIONS, NO OPEN WOUND SEEN. ), Warm Peripheral Pulses: 2+ carotid (R), 2+ carotid (L) Lymphatic: No Adenopathy Was a procedure done? Was a procedure done?: No EENT DIFF Eye: N/A Ear: Otitis Externa, Otitis Media, Dental, Pharyngitis, Sinusitis Nose: N/A Mouth: N/A Sore Throat: Pharyngitis, Streptococcal, Viral Pharyngitis, URI X-Ray, Labs, Meds, VS Vital Signs Date Time Temp Pulse Resp B/P (MAP) Pulse Ox O2 Delivery O2 Flow Rate FiO2 10/16/24 12:47 98.7 105 20 138/87 99 98.7 Current Medications Medications (Trade) Dose Ordered Sig/Vitaly Route Start Time Stop Time Status Last Admin Ceftriaxone Sodium (Rocephin) 1,000 mg ONCE ONCE IM 10/16/24 13:45 10/16/24 13:46 DC 10/16/24 13:47 Methylprednisolone Sodium Succinate (Solu Medrol) 125 mg ONCE ONCE IM 10/16/24 13:45 10/16/24 13:46 DC 10/16/24 13:47 X-Ray, Labs, Meds, VS Comment EXTERNAL MEDICAL RECORDS REVIEWED: [NONE] INDEPENDENT HISTORIANS: [NONE] SOCIAL DETERMINANTS OF HEALTH: [NONE] LABS ORDERED: NONE REVIEWED AND INTERPRETED RESULTS: NONE IMAGING ORDERED: NONE TREATMENTS ORDERED: ROCEPHIN 1G IM, SOLU-MEDROL 125MG IM PROCEDURES PERFORMED: NONE CRITICAL CARE TIME: NONE I HAVE DISCUSSED THE PATIENT WITH THE ATTENDING PHYSICIAN DR. HANNAH MONROY AND SHE AGREES WITH THE PATIENT'S PLAN OF CARE AND DISPOSITION. BASED ON HISTORY OF PRESENT ILLNESS, AND PHYSICAL EXAM, PATIENT WILL BE DISCHARGED HOME. DISCUSSED PLAN FOR DISCHARGE HOME WITH RX [ULTRAM, CIPRODEX EAR DROPS, AND TRIAMCINOLONE CREAM]. MEDICATION WARNINGS GIVEN. SHARED DECISION MAKING: PATIENT INSTRUCTED TO FOLLOW UP WITH PRIMARY CARE PROVIDER IN 1-2 DAYS FOR RE-EVALUATION OF SYMPTOMS. PATIENT VERBALIZES UNDERSTANDING TO RETURN TO ED FOR NEW OR WORSENING SYMPTOMS OR IF FOLLOW UP WITH PCP CANNOT BE OBTAINED. PATIENT FEELS COMFORTABLE GOING HOME AT THIS TIME. ALL QUESTIONS ADDRESSED AT TIME OF DISCHARGE. Time of 1ST Reevaluation: 14:10 Reevaluation 1ST: Improved Patient Education/Counseling: Diagnosis, Treatment, Need For Follow Up Family Education/Counseling: Diagnosis, Treatment, Need For Follow Up Medical Screening: No EMC Exist At This Time SEPSIS Sepsis Screen Date sepsis recognized/suspect: Oct 16, 2024 Time Sepsis recognized/suspect: 1250 Recent Procedure: No On Antibiotic Therapy: Yes Respiratory Rate >20: No Heart Rate >90: Yes Temp<36 C (96.8 F) or >38.3 C: No SBP <90 or MAP <65 mmHG: No New Acute Mental Status Change: No Is the patient on CPAP, BIPAP,: No Vital Signs Date Time Temp Pulse Resp B/P (MAP) Pulse Ox O2 Delivery O2 Flow Rate FiO2 10/16/24 12:47 98.7 105 20 138/87 99 98.7 Medications Medications Dose Ordered Sig/Vitaly Route Start Time Stop Time Status Last Admin Dose Admin Ceftriaxone Sodium 1,000 mg ONCE ONCE IM 10/16/24 13:45 10/16/24 13:46 DC 10/16/24 13:47 Methylprednisolone Sodium Succinate 125 mg ONCE ONCE IM 10/16/24 13:45 10/16/24 13:46 DC 10/16/24 13:47 Departure 1 Departure Time of Disposition: 14:10 Impression: Primary Impression: Otitis media of left ear Qualified Codes: H65.02 - Acute serous otitis media, left ear Additional Impressions: Herpes zoster Qualified Codes: B02.9 - Zoster without complications Acute pharyngitis Qualified Codes: J02.9 - Acute pharyngitis, unspecified Disposition: 01 HOME / SELF CARE / HOMELESS Condition: Stable Additional Instructions: FOLLOW-UP WITH PCP IN 1 TO 2 DAYS. TAKE MEDICATIONS PRESCRIBED. RETURN TO ED FOR ANY NEW OR WORSENING SYMPTOMS. e-Prescriptions Triamcinolone Acetonide (Triamcinolone Acetonide) 0.025 % Cre 1 APPLIC TOP BID, #30 GRAMS Prov: CHRISTIAN ANDRES 10/16/24 Tramadol HCl (Tramadol HCl) 50 Mg Tab 50 MG PO BID, #20 TAB Prov: CHRISTIAN ANDRES 10/16/24 Ciprofloxacin-Hydrocortisone (Cipro Hc 0.2-1 %) 1 Shantell Shantell 4 DROP OT BID, #7.5 ML Prov: CHRISTIAN ANDRES 10/16/24 Discharged With: Self, Spouse Critical Care Note Critical Care Time?: No Stability Stability form required: No I personally scribed for CHRISTIAN ANDRES ([email or web address]) on 10/16/24 at 13:37. Electronically submitted by Josué Arrington ([email or web address]). CHRISTIAN ANDRES Oct 16, 2024 13:37
[2024-10-16] MEDS ORDERED: TRIA0.02 TOP (13:45)
[2024-10-16] MEDS ORDERED: CIPRSUS OT (13:45)
[2024-10-16] MEDS ORDERED: TRAM-626 PO (13:45)
[2024-10-16] MEDS: methylPREDNISolone SOD SUCC 125 MG/2 ML VL IM ONE (13:47)
[2024-10-16] MEDS: cefTRIAXone SOD 1,000 MG VL IM ONE (13:47)
[2024-10-16 13:55] VITALS: BP 138/87; PULSE 105; RESP 20; TEMP 98.7; O2SAT 99
== END 2024-10-16 14:00 | disposition home or self-care (01) ==
LOC: ER 12:44
DX: H66.92 Otitis media, unspecified, left ear (principal); B02.9 Zoster without complications; Z79.899 Other long term (current) drug therapy; Z88.2 Allergy status to sulfonamides
CPT/HCPCS: 96372; 99284; J0696; J2919